=== PATIENT | female | born 1990 | race Caucasian/White ===

== ENCOUNTER → 2025-09-21 06:44 | Outpatient (REF) | payer OTHER, SELFPAY | LOC: HWRAD 06:44 | PROVIDERS: ATTENDING PHYSICIAN Family Medicine | DX: R79.82 Elevated C-reactive protein (CRP) (principal) | CPT/HCPCS: 76700 ==

== ENCOUNTER → 2025-09-22 07:04 | Outpatient (REF) | payer OTHER, SELFPAY | LOC: HWRCS 07:04 | PROVIDERS: ATTENDING PHYSICIAN Family Medicine | DX: R79.82 Elevated C-reactive protein (CRP) (principal) | CPT/HCPCS: 93306 ==